=== PATIENT | male | born 2000 | race Caucasian/White ===

== ENCOUNTER 2020-01-02 03:35 | Emergency (ER) | payer BC, SELFPAY ==
[2020-01-02 03:40] VITALS: BP 137/77; PULSE 71; RESP 20; TEMP 36.6; O2SAT 100
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
[2020-01-02 04:05] VITALS: BP 130/75; PULSE 94; RESP 20; O2SAT 100
== END 2020-01-02 04:10 | disposition home or self-care (01) ==
PROVIDERS: Emergency Provider Emergency Medicine
DX: S09.90XA Unspecified injury of head, initial encounter (principal); V49.9XXA Car occupant (driver) (passenger) injured in unspecified traffic accident, initial encounter
CPT/HCPCS: 99282